=== PATIENT | female | born 2000 | race Two or more races ===

== ENCOUNTER 2019-08-07 22:49 | Emergency (ER) | payer OTHER ==
[2019-08-07] MEDS ORDERED: NORMAL SALINE 1000 ML 1,000 ML IV ONE (23:05)
--- NOTE | 2019-08-07 23:09 | ER Document Report ---
ED Medical Screen (RME) - General Chief Complaint: Abdominal Pain Stated Complaint: ABDOMINAL PAIN Time Seen by Provider: 08/07/19 23:04 Mode of Arrival: Ambulatory Information source: Patient Notes: 19-year-old female presented to ED for complaint of diarrhea for the last 3 days. She states there was blood in her stool the first day the second day it was kind of black and watery. She today she states her stool has been kind of a brownish-orange color and very watery. She states she has been having body aches chills and abdominal pain. She states her last menstrual cycle was June 20. She states she had a negative test at home. She states she has never been in the past. She does not smoke drink or use any drugs. She is alert oriented respirations regular nonlabored speaking in full sentences. Pressure is 148/90 manually and the right arm I have greeted and performed a rapid initial assessment of this patient. A comprehensive ED assessment and evaluation of the patient, analysis of test results and completion of medical decision making process will be conducted by an additional ED providers. Physical Exam - Vital signs Vitals: Temp Pulse Resp BP Pulse Ox 98.4 F 105 H 20 150/94 H 100 08/07/19 22:53 08/07/19 22:53 08/07/19 22:53 08/07/19 22:53 08/07/19 22:53 Course - Vital Signs Vital signs: Temp Pulse Resp BP Pulse Ox 98.4 F 105 H 20 150/94 H 100 08/07/19 22:53 08/07/19 22:53 08/07/19 22:53 08/07/19 22:53 08/07/19 22:53
--- NOTE | 2019-08-07 23:50 | ER Document Report ---
ED General - General Chief Complaint: Diarrhea Stated Complaint: ABDOMINAL PAIN Time Seen by Provider: 08/07/19 23:04 Mode of Arrival: Ambulatory Information source: Patient TRAVEL OUTSIDE OF THE [place] IN LAST 30 DAYS: No - HPI Onset: Other - over the last 3 days Onset/Duration: Gradual Quality of pain: Achy, Cramping Severity: Mild Pain Level: 2 Associated symptoms: Chills, Diarrhea, Nausea, Other - abdominal pain, body aches Exacerbated by: Denies Relieved by: Denies Similar symptoms previously: No Recently seen / treated by doctor: No Notes: 19 year old female with no known PMH here for 3 days of diarrhea and crampy abdominal pains with mild nausea. The patient says she initially noted some niyah ght red blood in her stool but this has since cleared up. The patient says she gets crampy abdominal pain when she has the urge to have a bowel movement. The patient denies recent fevers, chills, sweats, vomiting, sweating, urinary symptoms, sick contacts, travel, ingestion of uncooked foods, ingestion of re- heated foods. The patient denies URI symptoms of any kind. - Related Data Allergies/Adverse Reactions: No Known Allergies Allergy (Verified 08/07/19 23:24) Home Medications: vitamins Past Medical History - General Information source: Patient - Social History Smoking Status: Never Smoker Frequency of alcohol use: None Drug Abuse: None Lives with: Spouse/Significant other Family History: Reviewed & Not Pertinent Patient has suicidal ideation: No Patient has homicidal ideation: No Review of Systems - Review of Systems Constitutional: No symptoms reported EENT: No symptoms reported Cardiovascular: No symptoms reported Respiratory: No symptoms reported Gastrointestinal: Abdominal pain, Diarrhea, Nausea Genitourinary: No symptoms reported Female Genitourinary: No symptoms reported Musculoskeletal: No symptoms reported Skin: No symptoms reported Hematologic/Lymphatic: No symptoms reported Neurological/Psychological: No symptoms reported -: Yes All other systems reviewed and negative Physical Exam - Vital signs Vitals: Temp Pulse Resp BP Pulse Ox 98.4 F 105 H 20 150/94 H 100 08/07/19 22:53 08/07/19 22:53 08/07/19 22:53 08/07/19 22:53 08/07/19 22:53 - Notes Notes: GENERAL: Well-appearing, well-nourished and in no acute distress. HEAD: Atraumatic, normocephalic. EYES: Pupils equal round and reactive to light, extraocular movements intact, sclera anicteric, conjunctiva are normal. ENT: Nares patent, oropharynx clear without exudates. Moist mucous membranes. NECK: Normal range of motion, supple without lymphadenopathy or JVD. LUNGS: Breath sounds clear to auscultation bilaterally and equal. No wheezes rales or rhonchi. HEART: Regular rate and rhythm without murmurs, rubs or gallops. ABDOMEN: Soft, nontender, normoactive bowel sounds. No guarding, no rebound. No masses appreciated. EXTREMITIES: Normal range of motion, no pitting or edema. No clubbing or cyanosis. NEUROLOGICAL: Cranial nerves II through XII grossly intact. Normal speech, normal gait. PSYCH: Normal mood, normal affect. SKIN: Warm, Dry, normal turgor, no rashes or lesions noted. Course - Vital Signs Vital signs: Temp Pulse Resp BP Pulse Ox 98.4 F 105 H 20 148/90 H 100 08/07/19 22:53 08/07/19 22:53 08/07/19 22:53 08/07/19 23:09 08/07/19 22:53 - Laboratory Result Diagrams: 08/08/19 00:30 08/08/19 00:30 Laboratory results interpreted by me: 08/07/19 08/07/19 08/08/19 23:35 23:35 00:30 RBC 5.29 H MCV 77 L MCH 26.9 L Total Protein Albumin Urine Blood SMALL H Stool for White Cells MODERATE H 08/08/19 00:30 RBC MCV MCH Total Protein 9.0 H Albumin 5.1 H Urine Blood Stool for White Cells Discharge - Discharge Clinical Impression: Gastroenteritis Condition: Stable Disposition: HOME, SELF-CARE Instructions: Abdominal Pain ([facility]), Diarrhea, Nonspecific ([facility]), Gastroenteritis (adult) ([facility]) Additional Instructions: Drink plenty of fluids in the days to come. Use Tylenol and Motrin for abdominal pains. Use Zofran for GI upset and nausea. Follow up with a primary care doctor. If you dont have a primary care doctor, follow up with one of the clinics listed in your discharge paperwork.
[2019-08-07 23:51] LABS: APPEARANCE,URINE CLEAR; BILIRUBIN,URINE NEGATIVE (NEGATIVE); COLOR,URINE COLORLESS; GLUCOSE, URINE NEGATIVE (NEGATIVE); KETONES,URINE NEGATIVE (NEGATIVE); PROTEIN,URINE NEGATIVE (NEGATIVE); URINE SPECIFIC GRAVITY 1.002; UROBILINOGEN,URINE NEGATIVE mg/dL (<2.0)
[2019-08-08] MEDS ORDERED: KETOROLAC TROMETHAMINE INJ/PF 30 MG/1 ML SDV IV ONE (00:38)
[2019-08-08] MEDS ORDERED: METOCLOPRAMIDE HCL INJ/PF 10 MG/2 ML SDV IV ONE (00:39)
[2019-08-08 00:55] LABS: ABSOLUTE LYMPHOCYTES (AUTO) 1.5 10^3/uL (0.5-4.7); ABSOLUTE MONOCYTES (AUTO) 0.5 10^3/uL (0.1-1.4); ABSOLUTE NEUT (AUTO) 5.6 10^3/uL (1.7-8.2); BASOPHILS % (AUTO) 0.2 % (0-2); EOSINOPHILS % (AUTO) 0.3 % (0-6); HEMATOCRIT 40.9 % (36.0-47.0); HEMOGLOBIN 14.2 g/dL (12.0-15.5); LYMPHOCYTES % (AUTO) 19.6 % (13-45); MEAN CORPUSCULAR HEMOGLOBIN 26.9 pg (27.0-33.4); MEAN CORPUSCULAR HGB CONC 34.8 g/dL (32.0-36.0); MEAN CORPUSCULAR VOLUME 77 fl (80-97); MONOCYTES % (AUTO) 6.1 % (3-13); PLATELET COUNT 233 10^3/uL (150-450); RED BLOOD COUNT 5.29 10^6/uL (3.72-5.28); RED CELL DISTRIBUTION WIDTH 13.4 % (11.5-14.0); SEGMENTED NEUTROPHILS % (AUTO) 73.8 % (42-78); TOTAL CELLS COUNTED % (AUTO) 100 %; WHITE BLOOD COUNT 7.5 10^3/uL (4.0-10.5)
[2019-08-08 01:24] LABS: ALBUMIN 5.1 g/dL (3.5-5.0); ALKALINE PHOSPHATASE 48 U/L (38-126); ANION GAP 12 (5-19); ASPARTATE AMINO TRANSFERASE 28 U/L (14-36); BILIRUBIN,DIRECT 0.2 mg/dL (0.0-0.4); BILIRUBIN,TOTAL 0.5 mg/dL (0.2-1.3); BLOOD UREA NITROGEN 12 mg/dL (7-20); CALCIUM 9.5 mg/dL (8.4-10.2); CARBON DIOXIDE 24 mmol/L (22-30); CHLORIDE 102 mmol/L (98-107); GLUCOSE 99 mg/dL (75-110); POTASSIUM 4.5 mmol/L (3.6-5.0)
[2019-08-08] MEDS ORDERED: ONDANSETRON ODT 4 MG TAB (6 TAB/ER DISP) PO PRN (02:06)
[2019-08-08 03:29] VITALS: BP 108/64
== END 2019-08-08 03:25 | disposition home or self-care (01) ==
LOC: ER 22:49
DX: K52.9 Noninfective gastroenteritis and colitis, unspecified (principal); R10.9 Unspecified abdominal pain; M79.10 Myalgia, unspecified site
CPT/HCPCS: 99284; 96361; 96374; 96375; 36415; 87045; 89055; 87205; 83735; 84703; 85025; 82272; 80053; 81001; J1885; J2765; J7030